=== PATIENT | male | born 1960 | race Caucasian/White ===

== ENCOUNTER → 2017-09-10 | Outpatient (CLI) | payer OTHER ==
--- NOTE | 2017-09-11 09:09 | Diagnostic Imaging Report ---
Exam: Lumbar spine MRI without IV contrast History: Back pain, sciatica, pain radiates to the left lower extremity Comparison studies: None Technique: Sagittal and axial T2 , sagittal T1 and IR, axial spin density oblique. Intravenous contrast: None Findings: Number of lumbar vertebral bodies: 5. Alignment: Normal lordosis. No scoliosis. Soft tissues: No T2 hyperintense inflammatory changes. Paraspinal muscles: No signal abnormalities. Well-preserved. No atrophic changes Lower thoracic cord: Normal in signal and morphology. The tip of the conus is at L1-L2. Cauda equina: No masses. No arachnoiditis. Vertebrae: A super L2 endplate depression deformity with associated minimal height loss is with mild edema along the endplate anteriorly which may indicate recent fracture. Chronic-appearing depression deformities of the superior T12 and superior L1 endplates with associated minimal height loss are without associated edema. No other fractures. No infection or neoplasm. Degenerative changes: T9-T12: Mildly degenerated discs from T9 to T12. Small Schmorl's nodes along the T10-T11 endplates. Patent canal and foramina. T12-L1: Patent canal and foramina. L1-L2: Mild loss of T2 disc signal. Small Schmorl's node along the left inferior L1 endplate with associated fatty-replaced marrow endplate changes. Patent canal and foramina. L2-L3: Mild loss of disc height and loss of T2 disc signal. Disc bulge, asymmetric to the left without significant canal or foraminal stenosis. L3-L4: Moderately degenerated disc with loss of disc height and loss of T2 disc signal. Reactive degenerative edema along the posterior endplates. Minimal retrolisthesis of L3 on L4 with associated disc osteophyte complex, thickened ligamentum flavum and facet arthrosis result in mild canal stenosis and moderate bilateral foraminal stenosis (left greater than right). L4-L5: Mildly degenerated disc. Small Schmorl's node along the inferior L4 endplate. Minimal retrolisthesis of L4 and L5 with associated uncovered disc/disc bulge asymmetric to the to the right, right foraminal disc osteophyte complex and moderate right and mild left facet arthrosis result in mild canal stenosis and moderate right foraminal stenosis. No significant left foraminal stenosis. L5-S1: Mildly degenerated disc with fatty replaced marrow endplate changes and mild edema along the right superior S1 endplate. Minimal retrolisthesis of L5 on S1 with associated disc osteophyte complex asymmetric to the right and facet arthrosis result in moderate right and mild left foraminal stenosis and minimal canal stenosis. IMPRESSION: 1. Superior L2 endplate depression deformity with minimal height loss is with mild endplate edema which may indicate recent fracture. 2. 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 3. Moderate degenerative foraminal stenosis bilaterally at L3-L4, on the right at L4-L5 and on the right at L5-S1. 4. Additional multilevel degenerative changes with multilevel disc degeneration (worse/moderate at L3-L4), mild degenerative endplate edema at L3-L4 and superiorly at S1 and mild multilevel facet arthrosis. No significant canal stenosis. Signed by: Dr. Richard Mohr M.D. on 09/11/2017 9:06 AM
== END ==
LOC: MRI 12:23
PROVIDERS: ATTEND Anesthesiology Pain Medicine
DX: M54.32 Sciatica, left side (principal)
CPT/HCPCS: 72148